=== PATIENT | male | born 1980 | race Caucasian/White ===

== ENCOUNTER 2022-06-13 09:16 | Emergency (ER) | payer OTHER, BC, SELFPAY ==
[2022-06-13 09:17] VITALS: BP 137/95; PULSE 84; RESP 16; TEMP 36.2; O2SAT 100; BMI 34.9
--- NOTE | 2022-06-13 09:52 | EDS_ITS ---
HPI History of Present Illness Chief Complaint: Eye Problem Detail of Chief Complaint: Right eye irritation after getting a paint chip in it. Informant: patient Onset/Context/Timing Location: Right Eye Onset: Today and Hours Context: Sudden Onset Timing: Continuous Current Severity: Mild Maximum Severity: Mild Associated Symptoms Associated Symptoms - Eyes: Burning and Redness History of injury: No Visual correction: Glasses Narrative Narrative: 42-year-old male with past medical history of diabetes and asthma. Wears glasses not contacts. 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 He irrigated out with plain water for about 10 minutes. Still has discomfort in his right eye. This occurred around 845. It is a Worker's Comp. claim. Prior similar symptoms: No Recent Illness/Hospitalization: No PFSH PFSH Medical History Asthma Diabetes mellitus Home Medications hydroxyzine HCl 25 mg tablet 25 mg PO QHS 06/13/22 [History Last Taken Unknown] metformin 500 mg tablet 500 mg PO QHS 06/13/22 [History Last Taken Unknown] sertraline 200 mg capsule 200 mg PO QHS 06/13/22 [History Last Taken Unknown] Allergy/AdvReac Type Severity Reaction Status Date / Time No Known Allergies Allergy Verified 06/13/22 09:17 Social History Smoking Status: Never smoker ROS ROS ED ROS Narrative Denies. Review of Systems ROS Unobtainable: Denies due to encephalopathy Constitutional Constitutional ED: Denies fever(s) Eyes Eyes: Denies blurry vision or diplopia ENT ENT ED: Denies ear pain Cardiovascular Cardiovascular: Denies chest pain Respiratory/Chest Respiratory/Chest: Denies cough Gastrointestinal Gastrointestinal: Denies abdominal pain Genitourinary Genitourinary ED: Denies dysuria Musculoskeletal Musculoskeletal: Denies arthralgias Integumentary Denies abscess Neurologic Neurologic: Denies headache(s) Psychiatric Psychiatric: Denies anxiety Endocrine Endocrinology: Denies polydipsia Hematologic/Lymphatic Hematologic/Lymphatic: Denies easy bleeding Allergic/Immunologic Allergic/Immunologic ED: Denies mouth swelling or tongue swelling EXAM Physical Exam Narrative Exam Narrative: 39-year-old male vital signs stable afebrile. HEENT exam pupils round and lase motions are intact. Right eye is injected and red. Watering. No discharge. Minimal swelling to upper and lower lids. Extraocular motions are intact. I inverted both the upper and lower lids and there is no signs of any type of foreign body. I applied tetracaine to his right eye and had immediate relief. Fluorescein stain was applied to the right eye and slit-lamp exam showed no foreign body. Eye is injected like a chemical conjunctivitis. There is no signs of infection nor any corneal abrasion nor any foreign body. Otherwise exam unremarkable. Const Vital Signs: 06/13/22 09:17 Temperature 97.1 F L Temperature Source Temporal Pulse Rate 84 Respiratory Rate 16 Blood Pressure 137/95 H Blood Pressure Mean 109 Pulse Ox 100 Oxygen Delivery Method Room Air Positive well nourished and well developed; Negative for cachectic, contractures or unkempt General Appearance ED: well developed and NAD; Negative for unkempt, cachectic or contractures Nutritional Appearance: Negative for cachectic HEENT HEENT Narrative: Right eye watering. Injected. No discharge. Extraocular motions intact. atraumatic; Negative for trauma or tenderness Eyes Eyes Narrative: See above. Neck no lymphadenopathy, supple and no JVD General: Negative for tenderness Resp normal respiratory effort, no retractions, no use of accessory muscles and clear to auscultation bilaterally Cardio regular rate, regular rhythm, S1 normal heart sound, S2 normal heart sound and no murmurs GI non-tender, non-distended and no masses Inspection: Negative for other Auscultation: normoactive bowel sounds Palpation: soft Extremity normal to inspection General Extremety ED: Negative for edema General Extremity: Negative for edema Neuro oriented x3, CN's II-XII intact bilaterally and moves all extremities Sensorium / Orientation: alert, oriented to person, oriented to place and oriented to time; Negative for orientation impaired or other Motor Exam: strength 5/5 throughout Psych Appearance: Negative for unkempt Attitude: No agitated Mood & Affect: Negative for depressed, anxious or tearful Skin no wounds Lesions: no lesions Rashes: no rashes Trauma: Negative for abrasion MDM MDM MDM Narrative Medical decision making narrative: 42-year-old male with a chemical conjunctivitis to his right eye. I do not see any signs of a corneal abrasion or foreign body after slit-lamp exam. The eye will be irrigated. To be discharged home with bacitracin ointment. Tetracaine drops which can use for the next 24 hours only for pain. Sunglasses to prevent glare. [facility] as needed. Discharge Plan Triage Chief Complaint: Eye Problem ED Provider: Pantera Corrales Dx/Rx/DC Orders Clinical Impression: Acute chemical conjunctivitis, Encounter related to worker's compensation claim Instructions: ED Eye Exposure, Chemical Prescriptions: No Action metformin 500 mg Tablet 500 mg PO QHS hydroxyzine HCl [Atarax] 25 mg Tablet 25 mg PO QHS sertraline 200 mg Capsule 200 mg PO QHS Primary Care Provider: NOT,DEFINED Referrals: Maikel Carballo MD [Med Staff - Active Staff] - 3-5 Days if not improving NOT,DEFINED [Primary Care Provider] - Activity Restrictions/Additional Instructions: Eye ointment to your right eye twice a day for the next 4 days. Tetracaine eyedrops for pain but she can only use them until tomorrow night. After 24 hours he cannot use them because they retard healing. Motrin for pain. Sunglasses to prevent glare. Follow-up with the eye doctor Maikel Carballo if not improving. Disposition Disposition: Home, Self Care
[2022-06-13] MEDS: Fluorescein 1 MG STRIP 1 STRIP RIGHT EYE (09:58)
[2022-06-13] MEDS: Tetracaine 0.5% Ophthalmic Bottle 5 DRP RIGHT EYE (10:00)
[2022-06-13] MEDS: Neomycin/Bacitracin/Polymyxin Opth. Ointment 1 APPLIC RIGHT EYE (10:45)
== END 2022-06-13 10:53 | disposition home or self-care (01) ==
PROVIDERS: Emergency Provider Emergency Medicine; Visit Provider Emergency Medicine
DX: H10.211 Acute toxic conjunctivitis, right eye (principal); E11.9 Type 2 diabetes mellitus without complications; Z79.84 Long term (current) use of oral hypoglycemic drugs; Z79.899 Other long term (current) drug therapy
CPT/HCPCS: 99283